=== PATIENT | male | born 1980 | race Caucasian/White ===

== ENCOUNTER 2020-09-08 10:48 | Emergency (ER) | payer BC ==
[~2020-09-08] VITALS: Ht 175.3 cm; Wt 147.4 kg
[2020-09-08] MEDS ORDERED: ORPHENADRINE 60 MG/2 ML (NORFLEX) AMP (ED ONLY) IM ONE (11:30)
[2020-09-08] MEDS ORDERED: KETOROLAC 60 MG/2 ML VIAL IM ONE (11:30)
[2020-09-08] MEDS ORDERED: HYDROcodone/APAP 5 MG/325 MG (LORTAB) TAB ONE (11:37)
[2020-09-08] MEDS ORDERED: oxyCODONE/APAP 5/325MG (PERCOCET 5) TABLET PO ONE ×2 (11:45→13:15)
[2020-09-08] MEDS ORDERED: HYDROcodone/APAP 5 MG/325 MG (LORTAB) TAB PO ONE (12:00)
[2020-09-08] MEDS ORDERED: CYCL10TA9 PO ×2 (13:15→13:39)
[2020-09-08] MEDS ORDERED: predniSONE 20 MG TAB PO ONE (13:15)
[2020-09-08] MEDS ORDERED: OXYC1TAB87 PO ×2 (13:15→13:39)
[2020-09-08] MEDS ORDERED: PRD20T PO ×2 (13:15→13:39)
--- NOTE | 2020-09-08 13:16 | ED Back Pain ---
General Chief Complaint: Back Problems Nursing Triage Note: PT BROUGHT IN BY [facility] FROM WORK WITH COMPLAINT OF BACK PAIN. STATES WAS BENDING DOWN AT [place] AND WHEN HE STOOD UP FELT SOMETHING TWEAK IN HIS BACK. Nursing Sepsis Screen: No Definite Risk Source of Information: Patient, EMS Exam Limitations: No Limitations History of Present Illness Date Seen by Provider: Sep 08, 2020 Time Seen by Provider: 11:01 Initial Comments This 40-year-old gentleman presents to the emergency room via EMS due to disabling back pain. He was picking up paint cans at the store when the pain became overwhelming. He has a history of multiple disc bulges from prior injury. He had MRI imaging performed at another facility. He denies any bowel or bladder dysfunction, true weakness of his legs, or groin numbness. Pain is in the central lower back. It sometimes radiates into the upper legs, right greater than left. He took ibuprofen 800 mg prior to arrival. Allergies and Home Medications Allergies Coded Allergies: No Known Drug Allergies (Unverified , 09/08/20) Home Medications Cyclobenzaprine HCl 10 Mg Tablet, 10 MG PO Q8H PRN for SPASMS Prescribed by: RONDA WELLS on 09/08/20 1339 Oxycodone HCl/Acetaminophen 1 Each Tablet, 1-2 TAB PO Q4H PRN for PAIN- BREAKTHROUGH Prescribed by: RONDA WELLS on 09/08/20 1339 Prednisone 20 Mg Tab, 40 MG PO DAILY Start to September 09 Prescribed by: RONDA WELLS on 09/08/20 1339 Patient Home Medication List Home Medication List Reviewed: Yes Review of Systems Constitutional: no symptoms reported EENTM: no symptoms reported Respiratory: no symptoms reported Cardiovascular: no symptoms reported Gastrointestinal: no symptoms reported Genitourinary: no symptoms reported Musculoskeletal: see HPI Skin: no symptoms reported Psychiatric/Neurological: See HPI Past Gqerhsu-Bcultj-Plxhva Hx Past Med/Social Hx: Reviewed Nursing Past Med/Soc Hx Patient Social History Alcohol Use: Occasionally Uses Smoking Status: Never a Smoker Recent Infectious Disease Expo: No Recent Hopitalizations: No Immunizations Up To Date Tetanus Booster (TDap): Unknown PED Vaccines UTD: Yes Seasonal Allergies Seasonal Allergies: No Past Medical History Surgeries: No Respiratory: No Cardiac: No Neurological: No Genitourinary: No Gastrointestinal: No Musculoskeletal: Yes Chronic Back Pain (Lumbar disc bulges) Endocrine: No HEENT: No Cancer: No Psychosocial: No Integumentary: No Blood Disorders: No Physical Exam Vital Signs Vital Signs - First Documented 09/08/20 10:48 Temp 36.6 Pulse 83 Resp 24 B/P (MAP) 126/83 (97) Pulse Ox 96 O2 Delivery Room Air Capillary Refill : Less Than 3 Seconds Height, Weight, BMI Height: '" Weight: lbs. oz. kg; 47.00 BMI Method: General Appearance: WD/WN, Moderate Distress HEENT: Normal ENT Inspection Neck: Normal Inspection Cardiovascular: Regular Rate, Rhythm, No Murmur Respiratory: Lungs Clear, Normal Breath Sounds Gastrointestinal: Non Tender, Soft Back: Normal Inspection (Tenderness in the lower lumbar region) Extremity: Normal Inspection, No Pedal Edema Neurologic/Psychiatric: Alert, Oriented x3, No Motor/Sensory Deficits, Normal Mood/Affect, rn cardiac cath II-XII Norm as Tested, Abnormal Cerebellar Tests Skin: Normal Color, Warm/Dry Progress/Results/Core Measures Results/Orders My Orders Orders - RONDA SANTANA MD Orphenadrine Inj (Ed Only) (Norflex Inje (09/08/20 11:30) Oxycodone/Apap 5/325mg Tablet (Percocet (09/08/20 11:45) Hydrocodone/Apap 5/325 Tablet (Lortab 5 (09/08/20 11:37) Hydrocodone/Apap 5/325 Tablet (Lortab 5 (09/08/20 12:00) Prednisone Tablet (Deltasone Tablet) (09/08/20 13:15) Oxycodone/Apap 5/325mg Tablet (Percocet (09/08/20 13:15) Medications Given in ED Current Medications Medications Dose Ordered Sig/Brice Route Start Time Stop Time Status Last Admin Dose Admin Acetaminophen/ Hydrocodone Bitart 2 ea ONCE ONCE PO 09/08/20 12:00 09/08/20 12:01 DC 09/08/20 11:40 2 EA Orphenadrine Citrate 60 mg ONCE ONCE IM 09/08/20 11:30 09/08/20 11:31 DC 09/08/20 11:40 60 MG Oxycodone/ Acetaminophen 1 tab ONCE ONCE PO 09/08/20 13:15 09/08/20 13:16 DC 09/08/20 13:21 1 TAB Prednisone 40 mg ONCE ONCE PO 09/08/20 13:15 09/08/20 13:16 DC 09/08/20 13:21 40 MG Vital Signs/I&O 09/08/20 09/08/20 10:48 13:41 Temp 36.6 36.6 Pulse 83 72 Resp 24 18 B/P (MAP) 126/83 (97) 125/79 (97) Pulse Ox 96 96 O2 Delivery Room Air Room Air Blood Pressure Mean: 97 Progress Progress Note : Progress Note Patient received a Norflex injection and hydrocodone 10 mg. This provided insuf ficient relief. This was followed by a Percocet tablet. Prednisone was also administered. See discharge instructions for further discussion. Departure Impression Primary Impression: Low back pain Qualified Codes: M54.41 - Lumbago with sciatica, right side Additional Impression: Lumbar radiculopathy Disposition: HOME, SELF-CARE Condition: Improved Departure-Patient Inst. Decision time for Depature: 13:12 Referrals: NO,LOCAL PHYSICIAN (PCP/Family) Primary Care Physician Patient Instructions: Low Back Pain in Adults, Radiculopathy Add. Discharge Instructions: For primary pain control use ibuprofen up to 600 mg every 6 hours as needed. Use Percocet (oxycodone) as prescribed for backup pain control. You may wish to use a stool softener while on Percocet to avoid constipation. Stool softener may be purchased [id number]. Gradually increase level of activity as pain allows. Avoid bending or heavy lifting until pain has completely resolved. You may use cyclobenzaprine as prescribed for muscle spasms. Gentle heat may help relax the muscles in your back. Follow-up with your primary care provider soon as possible. If symptoms are r ecurrent or persistent, you may need further evaluation such as MRI or further treatment such as physical therapy. Work on weight loss to help reduce strain on your back. Call with questions or concerns. Return to the emergency room if you have worsening symptoms, especially if you develop true weakness of your legs, bowel or bladder control problems, or numbness in your groin. All discharge instructions reviewed with patient and/or family. Voiced understanding. Scripts Cyclobenzaprine HCl (Cyclobenzaprine HCl) 10 Mg Tablet 10 MG PO Q8H PRN for SPASMS, #15 TAB 0 Refills Prov: BRUEGGEMANN,RONDA T MD 09/08/20 Oxycodone HCl/Acetaminophen (Percocet 5-325 mg Tablet) 1 Each Tablet 1-2 TAB PO Q4H PRN for PAIN-BREAKTHROUGH MDD 6 TABS, #15 TAB Prov: RONDA SANTANA MD 09/08/20 Prednisone (Prednisone) 20 Mg Tab 40 MG PO DAILY, #6 TAB 0 Refills Start to September 09 Prov: RONDA SANTANA MD 09/08/20 Work/School Note: Work Release Form Date Seen in the Emergency Department: Sep 08, 2020 Return to Work: Sep 11, 2020 Other Restrictions Listed Below: Avoid bending and lifting over 20 LBS until pain resolves. RONDA SANTANA MD Sep 08, 2020 13:16
[2020-09-08 13:41] VITALS: BP 125/79
== END 2020-09-08 13:41 | disposition home or self-care (01) ==
LOC: ER 11:01
DX: M54.16 Radiculopathy, lumbar region (principal); G89.29 Other chronic pain; M54.9 Dorsalgia, unspecified; Z79.52 Long term (current) use of systemic steroids
CPT/HCPCS: 99284

== ENCOUNTER 2022-03-21 09:30 | Emergency (ER) | payer BC ==
[~2022-03-21] VITALS: Ht 175.2 cm; Wt 167.8 kg
[~2022-03-21 09:30] MED LIST: CYCL10TA25 PO; OXYC1TAB87 PO; PRD20T PO
--- NOTE | 2022-03-21 10:03 | ED General ---
General Chief Complaint: Dizziness/Syncope Stated Complaint: SWEATS,DIZZINESS,PASSED OUT Nursing Triage Note: PT TO RM 5 WITH CC OF DIZZINESS, CONFUSION, SYNCOPE AND SWEATS FOR THE PAST WEEK. PT STATES UNWITTNESSED SYNCOPE THIS AM AT HOME. PT DENIES HITTING HIS HEAD AND LOC. PT A&OX4 Source of Information: Patient, Family Exam Limitations: No Limitations History of Present Illness Date Seen by Provider: Mar 21, 2022 Time Seen by Provider: 09:48 Initial Comments Patient is a 42-year-old male with a negative past medical history who presents to the emergency department today with a chief complaint of a couple of months of progressive symptoms of episodes of confusion, feeling "fuzzy", intermittent headaches, feeling dizzy and out of balance, profuse diaphoresis, foul-smelling urine and an episode of near syncope with dizziness after getting out of the shower this morning. Patient states when he had his episode of almost passing out this morning he decided it was time to come to the emergency room for evaluation. He had been to a PCP about a month and a half ago for work-up of the onset of the symptoms however they recommended blood work and he states he did not "have time" due to workload. He does not currently have a headache. No chest pain or shortness of breath. No nausea, vomiting. No diarrhea, black or bloody stools. He states his urine does smell "foul". He has increased urinary frequency as well as some increased thirst. Bedside blood sugar is 82. No prior surgical history. He takes no doge-uch-nrpbogi vitamins or supplements. 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 Denies fevers or chills. No productive cough. Unknown past family history secondary to being adopted. He does smoke. Drinks alcohol on the weekends. Denies illicit drugs. All other review of systems reviewed and negative except as stated. Timing/Duration: Other (6 weeks or so) Severity: Moderate Associated Systoms: Diaphoresis, Headaches, Malaise, Weakness Allergies and Home Medications Allergies Coded Allergies: No Known Drug Allergies (Unverified , 09/08/20) Patient Home Medication List Home Medication List Reviewed: Yes Cyclobenzaprine HCl (Cyclobenzaprine HCl) 10 Mg Tablet, 10 MG PO Q8H PRN for SPASMS Prescribed by: RONDA WELLS on 09/08/20 1339 Oxycodone HCl/Acetaminophen (Percocet 5-325 mg Tablet) 1 Each Tablet, 1-2 TAB PO Q4H PRN for PAIN-BREAKTHROUGH Prescribed by: RONDA WELLS on 09/08/20 1339 Prednisone (Prednisone) 20 Mg Tab, 40 MG PO DAILY Prescribed by: RONDA WELLS on 09/08/20 1339 Review of Systems Review of Systems Constitutional: see HPI, diaphoresis EENTM: no symptoms reported Respiratory: no symptoms reported Cardiovascular: no symptoms reported Gastrointestinal: no symptoms reported Genitourinary: frequency, other (foul smell to urine) Musculoskeletal: no symptoms reported Skin: no symptoms reported Psychiatric/Neurological: Headache, Other (near syncope/ dizziness) All Other Systems Reviewed Negative Unless Noted: Yes Past Rztbnrg-Yqkwhc-Ykbqxu Hx Patient Social History Tobacco Use?: Yes Tobacco type used: Cigarettes Smoking Status: Current Everyday Smoker Substance use?: No Alcohol Use?: No Pt feels they are or have been: No Immunizations Up To Date Tetanus Booster (TDap): Unknown PED Vaccines UTD: Yes Seasonal Allergies Seasonal Allergies: No Past Medical History Surgeries: No Respiratory: No Cardiac: No Neurological: No Genitourinary: No Gastrointestinal: No Musculoskeletal: Yes Chronic Back Pain Endocrine: No HEENT: No Cancer: No Psychosocial: No Integumentary: No Blood Disorders: No Physical Exam Vital Signs Vital Signs - First Documented 03/21/22 09:38 Temp 36.8 Pulse 101 Resp 22 B/P (MAP) 134/86 (102) Pulse Ox 94 O2 Delivery Room Air Capillary Refill : Less Than 3 Seconds Height, Weight, BMI Height: '" Weight: lbs. oz. 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, Other (tongue is midline; normal CN; neg romberg; no drift) Skin: Normal Color, Warm/Dry Progress/Results/Core Measures Suspected Sepsis SIRS Temperature: Pulse: 101 Respiratory Rate: 22 Laboratory Tests 03/21/22 10:09: White Blood Count 9.7 Blood Pressure 134 /86 Mean: 102 Laboratory Tests 03/21/22 10:09: Creatinine 0.94, Platelet Count 328, Total Bilirubin 0.6 Results/Orders Lab Results Laboratory Tests Test 03/21/22 09:48 03/21/22 10:09 03/21/22 10:25 Range/Units Glucometer 82 70-110 MG/DL White Blood Count 9.7 4.3-11.0 10^3/uL Red Blood Count 5.21 4.30-5.52 10^6/uL Hemoglobin 16.2 13.3-17.7 g/dL Hematocrit 48 40-54 % Mean Corpuscular Volume 92 80-99 fL Mean Corpuscular Hemoglobin 31 25-34 pg Mean Corpuscular Hemoglobin Concent 34 32-36 g/dL Red Cell Distribution Width 12.3 10.0-14.5 % Platelet Count 328 130-400 10^3/uL Mean Platelet Volume 9.9 9.0-12.2 fL Immature Granulocyte % (Auto) 1 % Neutrophils (%) (Auto) 55 42-75 % Lymphocytes (%) (Auto) 31 12-44 % Monocytes (%) (Auto) 7 0-12 % Eosinophils (%) (Auto) 6 0-10 % Basophils (%) (Auto) 1 0-10 % Neutrophils # (Auto) 5.3 1.8-7.8 10^3/uL Lymphocytes # (Auto) 3.0 1.0-4.0 10^3/uL Monocytes # (Auto) 0.7 0.0-1.0 10^3/uL Eosinophils # (Auto) 0.6 H 0.0-0.3 10^3/uL Basophils # (Auto) 0.1 0.0-0.1 10^3/uL Immature Granulocyte # (Auto) 0.1 0.0-0.1 10^3/uL Sodium Level 139 135-145 MMOL/L Potassium Level 4.2 3.6-5.0 MMOL/L Chloride Level 103 98-107 MMOL/L Carbon Dioxide Level 24 21-32 MMOL/L Anion Gap 12 5-14 MMOL/L Blood Urea Nitrogen 12 7-18 MG/DL Creatinine 0.94 0.60-1.30 MG/DL Estimat Glomerular Filtration Rate 104 BUN/Creatinine Ratio 13 Glucose Level 118 H 70-105 MG/DL Calcium Level 9.0 8.5-10.1 MG/DL Corrected Calcium 9.1 8.5-10.1 MG/DL Total Bilirubin 0.6 0.1-1.0 MG/DL Aspartate Amino Transf (AST/SGOT) 33 5-34 U/L Alanine Aminotransferase (ALT/SGPT) 75 H 0-55 U/L Alkaline Phosphatase 38 L 40-136 U/L Total Protein 7.7 6.4-8.2 GM/DL Albumin 3.9 3.2-4.5 GM/DL Urine Color YELLOW Urine Clarity CLEAR Urine pH 5.0 5-9 Urine Specific [place] >=1.030 1.016-1.022 Urine Protein NEGATIVE NEGATIVE Urine Glucose (UA) NEGATIVE NEGATIVE Urine Ketones NEGATIVE NEGATIVE Urine Nitrite NEGATIVE NEGATIVE Urine Bilirubin NEGATIVE NEGATIVE Urine Urobilinogen 0.2 < = 1.0 MG/DL Urine Leukocyte Esterase NEGATIVE NEGATIVE Urine RBC (Auto) NEGATIVE NEGATIVE Urine RBC NONE /HPF Urine WBC RARE /HPF Urine Crystals NONE /LPF Urine Bacteria NEGATIVE /HPF Urine Casts NONE /LPF Urine Mucus NEGATIVE /LPF Urine Culture Indicated NO My Orders Orders - RENETTA DELVALLE MD Ekg Tracing (03/21/22 09:36) Ed Iv/Invasive Line Start (03/21/22 09:56) Cbc With Automated Diff (03/21/22 09:56) Comprehensive Metabolic Panel (03/21/22 09:56) Ua Culture If Indicated (03/21/22 09:56) Ct Head Wo (03/21/22 09:56) Ns Iv 1000 Ml (Sodium Chloride 0.9%) (03/21/22 11:00) Vital Signs/I&O 03/21/22 09:38 Temp 36.8 Pulse 101 Resp 22 B/P (MAP) 134/86 (102) Pulse Ox 94 O2 Delivery Room Air Capillary Refill : Less Than 3 Seconds Blood Pressure Mean: 102 Point of Care Testing Finger Stick Blood Glucose: 82 Blood Glucose Action Taken: INFORMED ECG Initial ECG Impression Date: Mar 21, 2022 Initial ECG Impression Time: 09:46 Initial ECG Rate: 96 Initial ECG Rhythm: Normal Sinus Initial ECG Intervals: Normal Initial ECG Impression: Normal Diagnostic Imaging Diagonstic Imaging: CT Comments [facility], [place] NAME: FLIP LANGLEY [facility] REC#: [id number] PT STATUS: REG ER : 1980 PHYSICIAN: RENETTA DELVALLE MD ADMIT DATE: 03/21/22/ER Draft Date of Exam:03/21/22 CT HEAD WO PROCEDURE: CT head without contrast. TECHNIQUE: Multiple contiguous axial images were obtained through the brain without the use of intravenous contrast. Auto Exposure Controls were utilized during the CT exam to meet ALARA standards for radiation dose reduction. INDICATION: Headaches, dizziness. COMPARISON: None available. FINDINGS: No intracranial hemorrhage. No intracranial mass, mass effect, midline shift, herniation, hydrocephalus, or extra-axial fluid collection. No CT evidence of an acute ischemic infarction. The orbits are unremarkable. The paranasal sinuses are clear. The calvarium and extracalvarial soft tissues are unremarkable. IMPRESSION: No acute intracranial abnormality. Dictated on workstation # [id number] Dict: 03/21/22 1047 Trans: 03/21/22 1052 [id number] [id number] Interpreted by: ALIA MARSHALL MD Electronically signed by: Departure Impression Primary Impression: Near syncope Additional Impression: Dehydration Disposition: 01 HOME, SELF-CARE Condition: Stable Departure-Patient Inst. Decision time for Depature: 11:16 Referrals: MILENA GODWIN MD (PCP/Family) Primary Care Physician Patient Instructions: Dehydration, Adult ED Add. Discharge Instructions: Cut back on your energy drinks, increase gatorade and water. Please follow up with Dr Godwin this week and schedule your sleep study. If you develop any new, concerning or emergent complaints, please come back to the Emergency Department for re-evaluation. Work/School Note: Work Release Form Date Seen in the Emergency Department: Mar 21, 2022 Return to Work: Mar 22, 2022 Copy Copies To 1: MILENA GODWIN MD, KATHRYN M MD Mar 21, 2022 10:03
[2022-03-21 10:14] LABS: BASOPHILS # (AUTO) 0.1 10^3/uL (0.0-0.1); BASOPHILS % (AUTO) 1 % (0-10); EOSINOPHILS # (AUTO) 0.6 10^3/uL (0.0-0.3); EOSINOPHILS % (AUTO) 6 % (0-10); HEMATOCRIT 48 % (40-54); HEMOGLOBIN 16.2 g/dL (13.3-17.7); LYMPHOCYTES % (AUTO) 31 % (12-44); MEAN CORPUSCULAR HEMOGLOBIN 31 pg (25-34); MEAN CORPUSCULAR HGB CONC 34 g/dL (32-36); MEAN CORPUSCULAR VOLUME 92 fL (80-99); MEAN PLATELET VOLUME 9.9 fL (9.0-12.2); MONOCYTES # (AUTO) 0.7 10^3/uL (0.0-1.0); MONOCYTES % (AUTO) 7 % (0-12); NEUTROPHILS # (AUTO) 5.3 10^3/uL (1.8-7.8); NEUTROPHILS % (AUTO) 55 % (42-75); PLATELET COUNT 328 10^3/uL (130-400); WHITE BLOOD COUNT 9.7 10^3/uL (4.3-11.0)
[2022-03-21 10:18] LABS: ALBUMIN 3.9 GM/DL (3.2-4.5)
[2022-03-21 10:19] LABS: POTASSIUM 4.2 MMOL/L (3.6-5.0)
[2022-03-21 10:21] LABS: TOTAL PROTEIN 7.7 GM/DL (6.4-8.2)
[2022-03-21 10:23] LABS: BILIRUBIN,TOTAL 0.6 MG/DL (0.1-1.0)
[2022-03-21 10:25] LABS: CREATININE SERUM 0.94 MG/DL (0.60-1.30)
[2022-03-21 10:44] LABS: CLARITY,URINE CLEAR; COLOR,URINE YELLOW; PROTEIN,URINE NEGATIVE (NEGATIVE)
[2022-03-21 10:45] LABS: BACTERIA,URINE NEGATIVE /HPF; BILIRUBIN,URINE NEGATIVE (NEGATIVE); GLUCOSE, URINE (UA) NEGATIVE (NEGATIVE); KETONES,URINE NEGATIVE (NEGATIVE); LEUKOCYTE ESTERASE ,URINE NEGATIVE (NEGATIVE); NITRITE,URINE NEGATIVE (NEGATIVE); WBC,URINE RARE /HPF
--- NOTE | 2022-03-21 10:52 | Diagnostic Imaging Report ---
PROCEDURE: CT head without contrast. TECHNIQUE: Multiple contiguous axial images were obtained through the brain without the use of intravenous contrast. Auto Exposure Controls were utilized during the CT exam to meet ALARA standards for radiation dose reduction. INDICATION: Headaches, dizziness. COMPARISON: None available. FINDINGS: No intracranial hemorrhage. No intracranial mass, mass effect, midline shift, herniation, hydrocephalus, or extra-axial fluid collection. No CT evidence of an acute ischemic infarction. The orbits are unremarkable. The paranasal sinuses are clear. The calvarium and extracalvarial soft tissues are unremarkable. IMPRESSION: No acute intracranial abnormality. Dictated by: Dictated on workstation # [id number]
[2022-03-21] MEDS ORDERED: NS IV 1000 ML 1,000 ML IV SCH (11:00)
[2022-03-21 11:56] VITALS: BP 171/110
== END 2022-03-21 11:56 | disposition home or self-care (01) ==
LOC: EDUNIT# 09:30 → ER 09:33
DX: R55 Syncope and collapse (principal); E86.0 Dehydration; F17.210 Nicotine dependence, cigarettes, uncomplicated; Z28.310 Unvaccinated for COVID-19
CPT/HCPCS: 36415; 70450; 80053; 81000; 82947; 85025; 93005

== ENCOUNTER 2022-06-15 21:47 | Emergency (ER) | payer BC ==
[~2022-06-15] VITALS: Ht 175.2 cm; Wt 167.8 kg
--- NOTE | 2022-06-15 22:46 | ED Cough/URI ---
General Chief Complaint: Cough/Cold/Flu Symptoms Stated Complaint: COUGH/SOA Nursing Triage Note: PT ARRIVED POV WITH COMPLAINTS OF SOB AND COUGH X30 DAYS. PT STATED THAT HE WAS COUGHING SO HARD THAT HE HAD A SYNCOPAL EPISODE AN HOUR AGO IN HIS CAR. Source: patient History of Present Illness Date Seen by Provider: Jun 15, 2022 Time Seen by Provider: 22:05 Initial Comments PT ARRIVES VIA POV FROM HOME-DROVE HIMSELF HERE PT STATES HE HAS HAD A NON-PRODUCTIVE COUGH FOR 30 DAYS NO FEVER GETS SHORT OF BREATH WHEN COUGHS, AND TONIGHT, HE COUGHED SO HARD HE PASSED OUT IN HIS CAR. NO INJURY FROM THIS NO OTHER SYMPTOMS SYMPTOMS ARE NO DIFFERENT TODAY HAS NOT TAKEN ANYTHING FOR SYMPTOMS AT ANY TIME HAS NOT SOUGHT CARE UNTIL TONIGHT. SON TESTED + FOR INFLUENZA A THIS WEEK--SON LIVES WITH HIM. PT IS NOT COVID OR FLU VACCINATED HE DENIES ANY MEDICAL PROBLEMS PT SMOKES 1 PPD, AND ADMITS TO OCCASIONAL ALCOHOL USE, DENIES DRUG USE HE WORKS FOR [employer]. PCP: DR. MILENA GODWIN Allergies and Home Medications Allergies Coded Allergies: No Known Drug Allergies (Unverified , 09/08/20) Patient Home Medication List Home Medication List Reviewed: Yes Benzonatate (Benzonatate) 200 Mg Capsule, 200 MG PO TID Prescribed by: GABINO LYNNE on 06/15/222309 Cyclobenzaprine HCl (Cyclobenzaprine HCl) 10 Mg Tablet, 10 MG PO Q8H PRN for SPASMS Prescribed by: RONDA WELLS on 09/08/201338 Doxycycline Hyclate (Doxycycline Hyclate) 100 Mg Tablet, 100 MG PO BID Prescribed by: GABINO LYNNE on 06/15/222309 Methylprednisolone (Medrol) 4 Mg Tab.ds.pk, 4 MG PO UD Prescribed by: GABINO LYNNE on 06/15/222312 Oxycodone HCl/Acetaminophen (Percocet 5-325 mg Tablet) 1 Each Tablet, 1-2 TAB PO Q4H PRN for PAIN-BREAKTHROUGH Prescribed by: RONDA WELLS on 09/08/20 133 Prednisone (Prednisone) 20 Mg Tab, 40 MG PO DAILY Prescribed by: RONDA WELLS on 09/08/20 133 Promethazine/Dextromethorphan (Promethazine-Dm Syrup) 6.25 Mg-15 Mg/5 Ml Syrup, 5 ML PO Q4H Prescribed by: GABINO LYNNE on 06/15/22 8446 Review of Systems Review of Systems Constitutional: no symptoms reported EENTM: nose congestion Respiratory: see HPI, cough, short of breath Cardiovascular: see HPI, syncope Gastrointestinal: no symptoms reported Genitourinary: no symptoms reported Musculoskeletal: no symptoms reported Skin: no symptoms reported Psychiatric/Neurological: See HPI; Denies Headache Hematologic/Lymphatic: No Symptoms Reported Immunological/Allergic: no symptoms reported Past Ocoqmgo-Jqilks-Rlelfp Hx Patient Social History Tobacco Use?: Yes Tobacco type used: Cigarettes Smoking Status: Current Everyday Smoker Substance use?: No Alcohol Use?: Yes Alcohol Frequency: Once in a while Immunizations Up To Date Tetanus Booster (TDap): Unknown PED Vaccines UTD: Yes Influenza Vaccine Up-to-Date: No; Not Current Seasonal Allergies Seasonal Allergies: No Past Medical History Surgeries: No Respiratory: No Cardiac: No Neurological: No Genitourinary: No Gastrointestinal: No Musculoskeletal: Yes Chronic Back Pain Endocrine: Yes (OBESITY) HEENT: No Cancer: No Psychosocial: No Integumentary: No Blood Disorders: No Physical Exam Vital Signs - First Documented Capillary Refill : Height: '" Weight: lbs. oz. 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, no motor/sensory deficits, alert, normal mood/affect, oriented x 3 Skin: normal color, warm/dry, tattoos/piercings Progress/Results/Core Measures Suspected Sepsis SIRS Temperature: Pulse: 105 Respiratory Rate: Blood Pressure 122 /75 Mean: 91 Results/Orders Lab Results Laboratory Tests Test 06/15/22 22:00 Range/Units Influenza Type A (RT-PCR) Detected H Not Detecte Influenza Type B (RT-PCR) Not Detected Not Detecte SARS-CoV-2 RNA (RT-PCR) Not Detected Not Detecte My Orders Orders - GABINO LYNNE DO Covid 19 Inhouse Test (06/15/22 22:05) Influenza A And B By Pcr (06/15/22 22:05) Isolation Central Supply Req (06/15/22 22:05) Chest 1 View, Ap/Pa Only (06/15/22 22:24) Benzonatate Capsule (Tessalon Perles) (06/15/22 23:15) Rx-Doxycycline Tablet (Rx-Vibramycin Tab (06/15/22 23:11) Vital Signs/I&O 06/15/22 06/15/22 06/15/22 21:55 21:55 23:33 Temp 37.0 Pulse 105 104 B/P (MAP) 122/75 (91) 120/66 Pulse Ox 95 95 O2 Delivery Room Air Room Air Room Air Capillary Refill : Blood Pressure Mean: 91 Progress Note : Progress Note PLACED IN ISOLATION ROOM PPE WORN COVID AND FLU TESTING DONE NO DYSPNEA NO HYPOXIA NO FEVER DURING ER STAY NO DETERIORATION IN PT'S CONDITION DURING ER STAY PT IS FLU A +, BUT PT HAS HAD COUGH X 1 MONTH HE IS LIKELY OUTSIDE THE TREATMENT WINDOW FOR ANTIVIRAL THERAPY, WILL TREAT WITH ANTIBIOTICS AND OTHER SYMPTOMATIC MEDICATIONS STRESSED THE NEED FOR FOLLOW UP WITH HIS PCP NEXT WEEK FOR RECHECK DISCUSSED ANTICIPATED COURSE, AND RETURN PRECAUTIONS. Diagnostic Imaging Comments CXR--NO ACUTE PROCESS, PENDING RADIOLOGIST REVIEW Reviewed: Reviewed by Me Departure Impression Primary Impression: Influenza A Additional Impression: Bronchitis Disposition: 01 HOME, SELF-CARE Condition: Stable Departure-Patient Inst. Decision time for Depature: 23:04 Referrals: MILENA GODWIN MD (PCP/Family) Primary Care Physician Patient Instructions: Flu, Adult (DC), Preventing the Spread of an Infectious Disease Add. Discharge Instructions: QUARANTINE FOR THE NEXT WEEK CHECK YOUR TEMPERATURE EVERY 4 HOURS AND YOU MAY TAKE BOTH TYLENOL AND MOTRIN NEEDED FOR PAIN OR FEVER FOLLOW UP WITH YOUR DR NEXT WEEK FOR FURTHER CARE--CALL IN THE MORNING TO SCHEDULE AN APPOINTMENT RETURN TO ER IF SYMPTOMS WORSEN All discharge instructions reviewed with patient and/or family. Voiced underst anding. Scripts Promethazine/Dextromethorphan (Promethazine-Dm Syrup) 6.25 Mg-15 Mg/5 Ml Syrup 5 ML PO Q4H for Cough, #200 ML Prov: MAGEDGABINO Savita WRIGHT 06/15/22 Methylprednisolone (Medrol) 4 Mg Tab.ds.pk 4 MG PO UD for 6 Days, #21 PKG PER DOSE PACK INSTRUCTIONS Prov: GABINO LYNNE Savita WRIGHT 06/15/22 Benzonatate (Benzonatate) 200 Mg Capsule 200 MG PO TID, #30 CAP Prov: GABINO LYNNE DO 06/15/22 Doxycycline Hyclate (Doxycycline Hyclate) 100 Mg Tablet 100 MG PO BID, #20 TAB 0 Refills Prov: KATTY LYNNEA Savita WRIGHT 06/15/22 Work/School Note: Work Release Form Date Seen in the Emergency Department: Jun 15, 2022 Return to Work: Jun 23, 2022 GABINO LYNNE DO Jun 15, 2022 22:46
[2022-06-15] MEDS ORDERED: METH4TAB PO ×2 (23:10→23:13)
[2022-06-15] MEDS ORDERED: DOXY100T2 PO (23:10)
[2022-06-15] MEDS ORDERED: BENZ200C51 PO (23:10)
[2022-06-15] MEDS ORDERED: D-ME473S11 PO ×2 (23:10→23:13)
[2022-06-15] MEDS ORDERED: RX-DOXYCYCLINE 100 MG (VIBRAMYCIN) TAB PPK#2 PO STA (23:11)
[2022-06-15] MEDS ORDERED: BENZONATATE 100 MG (TESSALON) CAPSULE PO SCH (23:15)
[2022-06-15 23:33] VITALS: BP 120/66
--- NOTE | 2022-06-16 07:25 | Diagnostic Imaging Report ---
Indication: Cough Frontal chest obtained at 1047 p.m. Heart and mediastinal silhouette are normal in appearance. The lungs are clear. There is no pneumothorax or pleural fluid. IMPRESSION: Negative chest. Dictated by: Dictated on workstation # [id number]
== END 2022-06-15 23:33 | disposition home or self-care (01) ==
LOC: EDUNIT# 21:47 → ER 21:50
DX: J10.1 Influenza due to other identified influenza virus with other respiratory manifestations (principal); J40 Bronchitis, not specified as acute or chronic; E66.9 Obesity, unspecified; F17.210 Nicotine dependence, cigarettes, uncomplicated; Z68.43 Body mass index [BMI] 50.0-59.9, adult; Z20.822 Contact with and (suspected) exposure to COVID-19; Z28.310 Unvaccinated for COVID-19
CPT/HCPCS: 71045; 87636